=== PATIENT | male | born 1945 | race Caucasian/White ===

== ENCOUNTER 2024-08-03 16:09 | Emergency (ER) | payer MEDICARE, OTHER, SELFPAY ==
[2024-08-03 16:14] VITALS: BP 119/69
[2024-08-03] MEDS: PERCOCET 5/325 1 TABLET PO ×2 (17:17→18:36)
[2024-08-03 17:19] VITALS: BMI 23.7
[2024-08-03] MEDS: KEFLEX 500 MG PO (18:28)
[2024-08-03 18:40] VITALS: BP 124/82
[2024-08-03 18:51] VITALS: BP 124/82
--- NOTE | 2024-08-03 21:10 | ED.SKININJ ---
HPI-Injury
General
Chief Complaint: Skin Surface Trauma
Source: patient
Exam Limitations: none
Time Seen by Provider: 08/03/24 16:53
Nursing documentation reviewed up to this point in time: agreed with
History of Present Illness-Injury
Is this injury a work related problem?: No
Is pt an associate of [facility]?: No
Initial Injury comments:
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 Has amputation to distal left middle finger. Injury occurred just [employer]
Past History
Past History
ED Past Medical History: None
Review of Systems
Review of Systems
Allergies reviewed?: Yes
All Other Systems: ROS reviewed and negative except as documented in HPI and ROS
Constitutional: Reports no symptoms
Musculoskeletal: Reports joint pain (pain to left distal 3rd finger)
Skin: Reports other (distal amputation left middle finger)
Neurological: Reports no symptoms
Psychiatric: Reports no symptoms
Skin Exam
Amputation
Left Distal Third Finger:
Type: total distal amputation (total amputation from nailbed to tip)
Tendon evaluation: normal
Phy Exam
General Physical Exam
General Presentation: well appearing and mild distress
General age: appears stated age
General Skin: warm and dry
General Habitus: normal
General Mental: alert
Musculoskeletal Exam
Musculoskeletal Exam: neuro vasc intact
Skin Exam
Skin Exam: normal color, warm/dry and no rash
Psychiatric Exam
Psychiatric Exam: normal mood/affect
Course
Orders/Labs/Results
Orders:
Orders
08/03/24 17:10
Oxycodone/Acetaminophen [Percocet 5/325] 1 tablet PO NOW STA
Thumb/Finger(s) 2 View Lt [CR Finger(s)/thumb Min 2 Vw Lt] Urgent
Comment:
Reason For Exam: trauma
08/03/24 18:15
Cephalexin Monohydrate [Keflex] 500 mg PO NOW STA
08/03/24 18:20
Oxycodone/Acetaminophen [Percocet 5/325] 1 tablet PO NOW STA
Vital Signs
Initial and Last Documented VS:
Initial Vital Signs
Temp Pulse Resp BP Pulse Ox
98.0 F 65 18 119/69 97
08/03/24 16:14 08/03/24 16:14 08/03/24 16:14 08/03/24 16:14 08/03/24 16:14
Last Documented Vital Signs
Temp Pulse Resp BP Pulse Ox
98.0 F 66 18 124/82 97
08/03/24 16:14 08/03/24 18:40 08/03/24 16:14 08/03/24 18:51 08/03/24 18:40
*Radiology
Radiology exam reviewed: radiology read reviewed
*Pulse Oximetry
Patient hypoxic: no
*Critical Care Note
Total Time (30-74mins, 75-104mins- exclusive of procedures): Not Applicable
Update Note
Update Note:
Digital block with Lidocaine 1%. Finger soaked in 1/2 H2O2 and NSS. dressed with xeroform and DSD. Dr. Mills notified via tiger text. Will follow up in office in AM
ED Attending Note
-
Portions of this chart may have been created with voice recognition software.� Occasional wrong word or��sound alike� substitutions may have occurred due to the inherent limitations of voice recognition software.
Discharge Plan
Departure
Patient Disposition: Home (Routine Discharge)
Date of Disposition: 08/03/24
Time of Disposition: 18:16
Patient with high blood pressure during this ER visit?: No
Condition: Good
Covid-19: Not Applicable
Discharge Problem:
Traumatic amputation of fingertip
Instructions: Amputation of the Finger or Fingertip (DC)
Prescriptions:
New
cephalexin 500 mg capsule
500 mg PO BID 7 Days Qty: 14 0RF
oxycodone-acetaminophen [Percocet] 5-325 mg tablet
1 tab PO Q4H PRN (Reason: Pain) Qty: 14 0RF
Referrals:
Desiree Velasquez MD [Family Provider] -
Marcel Mills MD [Active] - Tomorrow (Please call office in the AM for your appointment time)
Activity Restrictions/Additional Instructions:
Follow up with Dr. Mills in the AM. Call the office in the AM for your appointment time.
Interventions
Interventions:
*Risk Screen - Suicide Last Done: 08/03/24 16:38
*General Assessment Last Done: 08/03/24 16:38
*Neglect/Abuse Screening Last Done: 08/03/24 16:38
ED- Fall Risk Assessment Last Done: 08/03/24 18:51
*ED COVID-19 Vaccine History Last Done: 08/03/24 16:38
*Nursing Disposition Last Done: 08/03/24 18:51
ED-Skin Assessment Last Done: 08/03/24 17:36
Discharge Date and Time
Discharge Date/Time: 08/03/24 18:57
Print Language: LIBERIAN
== END 2024-08-03 18:57 | disposition home or self-care (01) ==
LOC: EMR 16:09
PROVIDERS: EMERGENCY PHYSICIAN Emergency Medicine; FAMILY PHYSICIAN Internal Medicine
DX: S68.623A Partial traumatic transphalangeal amputation of left middle finger, initial encounter (principal); W27.0XXA Contact with workbench tool, initial encounter
CPT/HCPCS: 99284; 64450; 73140